=== PATIENT | male | born 1950 | race Caucasian/White ===

== ENCOUNTER 2018-07-20 21:50 | Observation (INO) | payer BC, MEDICARE ==
[~2018-07-20] VITALS: Ht 182.9 cm; Wt 102.9 kg
--- NOTE | 2018-07-20 22:40 | NUR ---
Arrived via EMS. Assessment complete. Lungs clear. Heart sounds normal. Bowels active x4. Pulses strong throughout. No edema noted. Denies any chest pain or abnormal symptoms. Orientated to medical floor. Denies needs at this time. Will monitor.
[2018-07-20] MEDS ORDERED: JANUVIA50 MG PO (22:42)
[2018-07-20] MEDS ORDERED: GLUCOPHAGE500 MG/TAB PO (22:44)
[2018-07-20 22:50] VITALS: BP 144/68; PULSE 56; TEMP 98.5
--- NOTE | 2018-07-20 23:54 | NUR ---
Resting in bed. Denies needs. Call light in reach.
--- NOTE | 2018-07-21 02:05 | NUR ---
Resting in bed asleep. Call light in reach.
[2018-07-21 03:04] LABS: MAGNESIUM 2.1 mg/dL (1.6-2.3)
[2018-07-21 03:36] LABS: TSH w REFLEX 1.74 uIU/mL (0.465-4.680)
[2018-07-21 04:12] VITALS: BP 132/54; PULSE 53; TEMP 98.2
[2018-07-21 04:16] LABS: MUCOUS Present /lpf; PH 5 (5-8); SQUAMOUS EPITHELIAL None Seen /hpf; URINE APPEARANCE Clear; URINE BACTERIA None Seen /hpf; URINE BILIRUBIN Negative (NEGATIVE); URINE BLOOD Negative (NEGATIVE); URINE COLOR Yellow; URINE GLUCOSE Negative (NEGATIVE); URINE KETONE Trace (NEGATIVE); URINE LEUKOCYTE ESTERASE Negative (NEGATIVE); URINE NITRATE Negative (NEGATIVE); URINE PROTEIN(semi-quant) Negative (NEGATIVE); URINE RBC 0-2 /hpf; URINE UROBILINOGEN Negative (NEGATIVE)
[2018-07-21 04:38] LABS: COLLECTION METHOD CLEAN CATCH
--- NOTE | 2018-07-21 06:11 | NUR ---
Patient had uneventful night. Resting in bed this AM. Call light in reach.
[2018-07-21 06:28] LABS: BASO % 0.6 % (0.0-2.0); EOS # 0.2 (0.0-0.7); GRAN # 4.5 (1.4-6.5); GRAN % 66.7 % (42.2-75.2); HEMATOCRIT 37.3 % (42.0-52.0); HEMOGLOBIN 12.4 g/dl (13.5-18.0); LYMPH # 1.5 (1.2-3.4); LYMPH % 22.1 % (20.0-51.0); MEAN CELL VOLUME 90 fl (80.0-100.0); MEAN CORPUSCULAR HEMOGLOBIN 30 pg (27.0-31.0); MEAN CORPUSCULAR HGB CONC 33 g/dl (33.0-37.0); MEAN PLATELET VOLUME 9.1 fl (7.4-10.4); MONO # 0.5 (0.1-0.6); MONO % 7.3 % (1.7-9.3); PLATELET COUNT 217 K/mm3 (130-400); RED BLOOD COUNT 4.14 M/mm3 (4.20-5.60); REDCELL DISTRIBUTION WIDTH-CV 13.7 % (11.5-14.5)
[2018-07-21 06:39] LABS: CALCIUM 8.8 mg/dL (8.4-10.2); CREATININE, serum 0.7 (0.66-1.25)
--- NOTE | 2018-07-21 07:10 | NUR ---
Report given to TAYLOR Barboza
[2018-07-21 07:56] VITALS: BP 130/67; PULSE 54; TEMP 98.5
[2018-07-21 07:58] VITALS: BP 131/65; PULSE 66
--- NOTE | 2018-07-21 08:00 | NUR ---
Assessment complete.patient awake,a/ox3.denies pain or discomfort at this time.denies any changes in vision,denies nausea or dizziness.VSS.blood sugar stable.IVF infusing.denies any other needs at this time.will continue to monitor.call light in reach
--- NOTE | 2018-07-21 10:46 | NUR ---
AND TEAM ROUNDED ON PATIENT.PT AWAITING COMPLETION OF TESTS ORDERED.NO OTHER CONCERNS AT THIS TIME.CALL LIGHT IN REACH
--- NOTE | 2018-07-21 11:29 | NUR ---
First visit from the reservations specialist. No needs right now.
--- NOTE | 2018-07-21 11:50 | NUR ---
BETO met with the patient to discuss discharge plan. The patient lives alone outside of [place]. He states that him and his (Krys) also have a house in [place] and that she goes back and fourth between houses, due to work. He reports independence with ADLs and does not use any DME. The patient's PCP is Dr. Marcial Freeman and he receives his medications at the [facility]. He reports no difficulties obtaining his meds. The patient does not have advanced directives in EMR, but he states that he does have them completed and that his DPOA-HC is his daughter. He states that his PCP's office should have a copy of the form. SW contacted his PCP's office and requested a copy. They did not have a copy. SW updated the patient. The patient plans to return home upon discharge. No additional needs at this time.
[2018-07-21 12:30] VITALS: BP 126/52; PULSE 67; TEMP 98.4
--- NOTE | 2018-07-21 18:16 | NUR ---
PT RESTING IN BED AT THIS TIME.AWAITING RESULTS FOR MRI AND POSSIBLE DISCHARGE TONIGHT.OFFERED TO REPLACE TELEMETRY ON BUT PATIENT DECLINE WITH HOPES TO DISCHARGE SOON HE GETS HIS MRI RESULTS.WILL CONTINUE TO MONITOR.CALL LIGHT IN REACH
[2018-07-21 18:35] VITALS: BP 154/58; PULSE 54; TEMP 98.4
--- NOTE | 2018-07-21 18:56 | NUR ---
REPORT GIVEN TO TAYLOR WHITLOCK.
--- NOTE | 2018-07-21 19:07 | NUR ---
Report received from TAYLOR Barboza.
--- NOTE | 2018-07-21 19:40 | NUR ---
Discharge paperwork signed. All questions answered. Patient escorted by FUR M[employer]ER. INT left hand removed.
== END 2018-07-21 19:41 | disposition home or self-care (01) ==
LOC: MEDICAL 21:50
PROVIDERS: Nurse Practitioner Family; ADMIT Hospitalist
DX: R55 Syncope and collapse (principal); E11.9 Type 2 diabetes mellitus without complications; I10 Essential (primary) hypertension; Z79.84 Long term (current) use of oral hypoglycemic drugs
CPT/HCPCS: A9585; G0378; G0379; J1650; J1815; J7030

== ENCOUNTER → 2018-07-23 | Outpatient (CLI) | payer BC, MEDICARE ==
[~2018-07-23] MED LIST: GLUCOPHAGE500 MG/TAB PO; JANUVIA50 MG PO
== END ==
LOC: COL.CARD 09:42
DX: R55 Syncope and collapse (principal)